=== PATIENT | male | born 1990 | race Caucasian/White ===

== ENCOUNTER 2016-12-18 15:21 | Inpatient (IN) | payer BC, OTHER ==
[~2016-12-18] VITALS: Ht 180.3 cm; Wt 83.9 kg
[2016-12-18 21:27] LABS: *AMPHETAMINE, URINE NEGATIVE (NEGATIVE); *BARBITURATE, URINE POSITIVE (NEGATIVE); *CANNABINOID, URINE NEGATIVE (NEGATIVE); *COCCAINE, URINE NEGATIVE (NEGATIVE); *OPIATE, URINE NEGATIVE (NEGATIVE); *PHENCYCLIDINE SCREEN,URINE NEGATIVE (NEGATIVE)
--- NOTE | 2016-12-18 21:30 | NUR ---
Pre admission note Pt assessed in intake office. Pt appears mildly intoxicated but stable at this time. Pt is suitable for admission. V/S WNL. No s/s of distress noted. Respirations even and unlabored. Policies on medication disposal explained and understood by patient. Pt will be be admitted to unit.
[2016-12-18 21:45] VITALS: BP 110/66
[2016-12-18] MEDS ORDERED: ACETAMINOPHEN 325 MG TABLET PO PRN (21:45)
[2016-12-18] MEDS ORDERED: MAGNESIUM HYDROXIDE 30 ML LIQUID UDC PO PRN (21:45)
[2016-12-18] MEDS ORDERED: MAG HYDROX/AL HYDROX/SIMETH 30 ML LIQUID UDC PO PRN (21:45)
[2016-12-18] MEDS ORDERED: HYDROXYZINE PAMOATE 25 MG CAPSULE PO PRN (21:45)
[2016-12-18] MEDS ORDERED: LORAZEPAM 1 MG TABLET PO PRN ×2 (21:45)
[2016-12-18] MEDS ORDERED: diphenhydrAMINE 50 MG CAPSULE PO PRN (21:45)
[2016-12-18] MEDS ORDERED: DICYCLOMINE HCL 20 MG TABLET PO PRN (21:45)
[2016-12-18] MEDS ORDERED: CLONIDINE HCL 0.1 MG TABLET PO PRN (21:45)
[2016-12-18] MEDS ORDERED: LOPERAMIDE HCL 2 MG CAPSULE PO PRN ×2 (21:45)
[2016-12-18] MEDS ORDERED: MIRALAX 17 GM POWD.PACK PO PRN (21:45)
[2016-12-18] MEDS ORDERED: THIAMINE HCL 200 MG/2 ML VIAL IM ONE (21:45)
[2016-12-18] MEDS ORDERED: LORAZEPAM 2 MG/1 ML VIAL IM PRN (21:45)
[2016-12-18] MEDS ORDERED: ONDANSETRON 4 MG/2 ML VIAL IM PRN (21:45)
[2016-12-18] MEDS ORDERED: IBUPROFEN 400 MG TABLET PO PRN (21:45)
--- NOTE | 2016-12-18 21:45 | NUR ---
Admission note Pt is a 26 yo male, A+Ox4, presenting to [facility] for ETOH/Benzo/Barbiturate/Cocaine/Marijuana dependence. Pt has Allergies to bees and Acetaminophen, is on Full code, and on regular diet. Pt is 5'11" in height and 185 LBS in weight. Pt has medical HX of Pseudo Seizures (8 days ago), Asthma, Vertigo, Herniated discs (c6 and c7), bipolar, depression, anxiety, and panic disorder. Pt has no primary care provider. Pt has no family HX to report. Pt has been drinking alcohol for 4 years (6 months currently), has reached a level of 750ml-1500ml/daily, and last drink was 375ml on 12-18-16 @1999. Pt has been taking Xanax PO for 7 years (6 months currently), has reached a level of 5mg-10mg/daily, and last dose was 8mg on 12-15-16. Pt has been taking Pentobarbital PO for 2 years (6 months currently), pt is unsure how much he has been taking daily, and last dose was on 12-18-16 @1999 in an unknown amount. Pt has been using Cocaine IV/intranasally for 2 years (6 months currently), has reached a level of 3.5gm-7gm/daily, and last dose was 3.5gm on 12-11-16. Pt has been smoking Marijuana for 2 years, has reached a level of 4gm-5gm/daily, and last dose was 4gm-5gm on 12-15-16. Pt has been taking home medications as follows: Gabapentin 1200mg QID-Last dose on 12/13/16, Albuterol inhaler PRN, and Seroquel 100mg QHS-Last dose unknown. Pt has HX of previous detox/rehab @ [facility] in [place] in February 2016. Pt continued sobriety for a total of 121 days. This was the Pt's last time sober. Pt has been a cigarette smoker for 9 years and has reached a level of 20/daily. Pt appears mildly intoxicated upon admission but in stable condition. V/S WNL. No s/s of distress noted at this time. Respirations even and unlabored. Will continue to monitor.
[2016-12-18] MEDS ORDERED: LORAZEPAM 1 MG TABLET PO ONE (23:00)
[2016-12-18] MEDS ORDERED: LORAZEPAM 1 MG TABLET ONE (23:06)
[2016-12-18] MEDS ORDERED: THIAMINE HCL 200 MG/2 ML VIAL ONE (23:06)
[2016-12-18 23:26] LABS: BASOPHILS # (AUTO) 0.1 K/uL (0.0-8.0); EOSINOPHILS # (AUTO) 0.3 K/uL (0.0-0.7); EOSINOPHILS % (AUTO) 2.2 % (0.0-7.0); HEMATOCRIT 43.3 % (40-50); HEMOGLOBIN 15.2 G/DL (14.0-18.0); LYMPHOCYTES # (AUTO) 2.9 K/UL (0.8-4.8); LYMPHOCYTES % (AUTO) 23.5 % (20.5-51.5); MEAN CORPUSCULAR HEMOGLOBIN 29.4 UUG (27.0-31.0); MEAN CORPUSCULAR HGB CONC 35 g/dL (32.0-37.0); MEAN CORPUSCULAR VOLUME 83.9 FL (82.0-92.0); MONOCYTES # (AUTO) 0.8 K/UL (0.1-1.30); MONOCYTES % (AUTO) 6.6 % (0.0-11.0); NEUTROPHILS # (AUTO) 8.4 K/UL (1.8-8.9); NEUTROPHILS % (AUTO) 66.7 % (38.5-71.5); PLATELET COUNT (AUTO) 290 K/UL (150-450); RED BLOOD CELL COUNT(AUTO) 5.17 MIL/UL (4.7-6.1); WHITE BLOOD COUNT (AUTO) 12.5 K/UL (4.0-11.2)
[2016-12-18 23:57] LABS: THYROID STIMULATING HORMONE 4.915 mIU/mL (0.358-3.740)
[2016-12-19] LABS: BILIRUBIN,TOTAL 0.3 mg/dL (0.2-1.0); CREATININE 1.2 mg/dL (0.6-1.3); MAGNESIUM 1.9 mg/dL (1.8-2.4); POTASSIUM 4.3 mmol/L (3.5-5.1)
[2016-12-19 00:14] VITALS: BP 119/50
[2016-12-19] MEDS ORDERED: ALBU18HF2 INH (02:05)
[2016-12-19] MEDS ORDERED: QUET100T PO (02:05)
[2016-12-19] MEDS ORDERED: GABA800T PO (02:05)
[2016-12-19 04:46] VITALS: BP 107/60
--- NOTE | 2016-12-19 07:00 | NUR ---
End of shift note Pt is a 26 yo male, A+Ox4, presenting to [facility] for ETOH/Benzo/Barbiturate/Cocaine/Marijuana dependence. Pt has Allergies to Bees and Acetaminophen, is on Full code status, and on regular diet. Pt has medical HX of Pseudo Seizures (8 days ago), Asthma, Vertigo, Herniated discs (c6 and c7), bipolar, depression, anxiety, and panic disorder. Pt is on Fall and Seizure precautions. Pt is on 5 day Ativan taper to start today. Pt slept for a total of 6 HRS. Last CIWA: 1 @0400. No s/s of distress noted at this time. Respirations even and unlabored. Will continue to monitor.
--- NOTE | 2016-12-19 07:48 | NUR ---
START OF SHIFT Pt 26 y/o male admitted for etoh/ benzo/ barbituate/ cocaine/ marijuana dependence. Pt received in room sitting on bed awake. Pt alert and oriented to name, place, and time. Perrla. Skin warm and slightly moist to touch. Respirations even and unlabored. It was reported that pt slept for 6 hours last night. Bed on lowest position with side rails x2 up for safety. Call light within reach. No distress noted at this time.
[2016-12-19 08:00] VITALS: BP 117/77
[2016-12-19] MEDS: GABAPENTIN 300 MG CAPSULE PO SCH ×3 (08:23→20:58)
[2016-12-19] MEDS: THIAMINE HCL 100 MG TABLET PO SCH (08:23)
[2016-12-19] MEDS: MULTIVITAMINS,THERAPEUTIC TABLET PO SCH (08:23)
[2016-12-19] MEDS: FOLIC ACID 1 MG TABLET PO SCH (08:23)
[2016-12-19] MEDS: LORAZEPAM 1 MG TABLET PO SCH ×4 (08:24→20:57)
--- NOTE | 2016-12-19 08:30 | NUR ---
PRN Pt with c/o back pain 04/20. Motrin po prn per MD order given and tolerated well.
[2016-12-19] MEDS ORDERED: TUBERCULIN,PURIF.PROT.DERIV. 5 TU/0.1 ML TEST ID ONE (09:00)
--- NOTE | 2016-12-19 09:30 | NUR ---
PRN BRIGITTE Pt observed on bed in room with eyes closed resting, but easily arousable to name.
[2016-12-19 12:00] VITALS: BP 102/67
[2016-12-19] MEDS: KETOROLAC TROMETHAMINE 30 MG INJ IM PRN ×2 (12:44→18:57)
--- NOTE | 2016-12-19 12:44 | NUR ---
PRN Pt states lower back pain 04/20. Toradol IM prn per MD order given and tolerated well.
[2016-12-19] MEDS ORDERED: PATIENT MAY USE OWN MED- MD OK INH PRN (13:00)
--- NOTE | 2016-12-19 13:44 | NUR ---
PRN EVAL Pt states pain level is 4/10. Pt observed ambulating well.
[2016-12-19] MEDS ORDERED: QUETIAPINE FUMARATE 25 MG TABLET PO PRN (14:00)
--- NOTE | 2016-12-19 14:54 | NUR ---
Client was encouraged to attend group, and was informed that groups are daily at 11am and 3:30pm.
[2016-12-19] MEDS ORDERED: ALBUTEROL SULFATE 1.25 MG/3 ML NEBU NEB PRN (15:30)
[2016-12-19 16:00] VITALS: BP 120/73
--- NOTE | 2016-12-19 18:21 | NUR ---
END OF SHIFT Pt 26 y/o male admitted for etoh/ benzo/ barbiturate/ cocaine/ marijuana dependence. Pt alert and oriented to name, place, and time. Perrla. Skin warm and slightly moist to touch. Respirations even and unlabored. Bilateral hand tremors noted. Pt observed mostly isolative to room throughout the day. Pt did not attend group activity today. Pt was seen by Dr. Tran today. Pt medication compliant and tolerated well. No ASE noted. Bed on lowest position with side rails x2 up for safety. Call light within reach. No distress noted at this time.
--- NOTE | 2016-12-19 19:00 | NUR ---
PRN Pt states pain level 7/10 of lower back , aggravated by movement. Toradol IM prn per MD order given and tolerated well.
--- NOTE | 2016-12-19 19:15 | NUR ---
START OF SHIFT Received 26 year old male patient admitted on 12/18/16 for ETOH, Xanax, Phenobarbital, Cocaine and Marijuana dependency. Pt is full code with allergy to acetaminophen and bees. Pt reports a PMHx of pseudo seizures (8 days ago) asthma, vertigo, herniated discs C6&C7, bipolar, depression, anxiety and panic disorder. He reports drinking ETOH 750 mL-1500 mL vodka daily for 4 years. Last dose was 375 mL on 12/18/16. Xanax 5-10 mg daily for 7 years. Last dose was 8 mg on 12/15/16. Phenobarbital daily for 2 years. Last dose was on 12/18/16. Cocaine 3.5 -7 gram daily for 2 years. Last dose was 3.5 gram on 12/11/16. And Marijuana 4-5 gram daily or 2 years. Last dose was 4 -5 gram on 12/15/16. Per endorsement, pt received PRN Toradol. Will reassess effectiveness. Pt is alert and oriented x4, breathing is even and unlabored. Safety measures in place. Will continue to monitor.
[2016-12-19 20:00] VITALS: BP 118/81
--- NOTE | 2016-12-19 20:00 | NUR ---
PRN REASSESSMENT PRN Toradol effective. Pt reports decrease in lower back pain 09/18. Breathing even and unlabored, safety measures in place. Will monitor.
[2016-12-19] MEDS: QUETIAPINE FUMARATE 100 MG TABLET PO PRN (23:02)
--- NOTE | 2016-12-19 23:02 | NUR ---
PRN SEROQUEL Pt complains of inability to sleep. PRN Seroquel administered as ordered. Breathing is even and unlabored. Respirations 16. Safety measures in place. Will monitor effectiveness.
[2016-12-20] VITALS: BP 112/85
--- NOTE | 2016-12-20 00:02 | NUR ---
PRN SEROQUEL REASSESSMENT PRN medication effective. Pt lying in bed with eyes closed noted to be asleep. Respirations 16, breathing is even and unlabored, safety measures in place. Will continue to monitor.
[2016-12-20 04:00] VITALS: BP 110/82
--- NOTE | 2016-12-20 07:07 | NUR ---
END OF SHIFT Pt is a 26 year old male patient admitted on 12/18/16 for ETOH, Xanax, Phenobarbital, Cocaine and Marijuana dependency. Pt is full code with allergy to acetaminophen and bees. Pt reports a PMHx of pseudo seizures (8 days ago) asthma, vertigo, herniated discs C6&C7, bipolar, depression, anxiety and panic disorder. Pt continues on 5 day Ativan taper. He is currently on day 2/5 and tolerating well. He received PRN Seroquel at 2302 d/t inability to sleep. He slept a total of 6 hrs, Intake: 1200mL, Void: x3, BM:0, CIWA:4. Pt remains alert and oriented x4, breathing is even and unlabored. Safety measures in place. Will endorse to oncoming shift.
[2016-12-20 08:00] VITALS: BP 117/69
--- NOTE | 2016-12-20 08:02 | NUR ---
START OF SHIFT Pt 26 y/o male admitted for etoh/ benzo/ barbituate/ cocaine/ marijuana dependence. Pt received in room on bed with eyes closed resting, but easily arousable to name. Pt alert and oriented to name, place, and time. Perrla. Skin warm and slightly moist to touch. Respirations even and unlabored. It was reported that pt slept for 6 hours last night. Bed on lowest position with side rails x2 up for safety. Call light within reach. No distress noted at this time.
[2016-12-20] MEDS: GABAPENTIN 300 MG CAPSULE PO SCH ×3 (08:44→21:02)
[2016-12-20] MEDS: LIDOCAINE 5% PATCH TD SCH (08:44)
[2016-12-20] MEDS: LORAZEPAM 1 MG TABLET PO SCH ×3 (08:44→21:01)
[2016-12-20] MEDS: MULTIVITAMINS,THERAPEUTIC TABLET PO SCH (08:45)
[2016-12-20] MEDS: FOLIC ACID 1 MG TABLET PO SCH (08:45)
[2016-12-20] MEDS: THIAMINE HCL 100 MG TABLET PO SCH (08:45)
[2016-12-20] MEDS: KETOROLAC TROMETHAMINE 30 MG INJ IM PRN ×2 (08:46→14:56)
--- NOTE | 2016-12-20 08:56 | NUR ---
PRN Pt with c/o back pain 12/19. Toradol IM prn per MD order given and tolerated well.
--- NOTE | 2016-12-20 09:56 | NUR ---
PRN EVAL Pt states pain level 2/10.
[2016-12-20 12:00] VITALS: BP 115/77
[2016-12-20] MEDS ORDERED: LORAZEPAM 1 MG TABLET PO ONE ×2 (12:00→19:00)
[2016-12-20] MEDS: BACLOFEN 10 MG TABLET PO SCH ×2 (14:12→21:01)
[2016-12-20] MEDS: DICYCLOMINE HCL 20 MG TABLET PO SCH ×2 (14:12→21:01)
--- NOTE | 2016-12-20 15:02 | NUR ---
PRN Pt with c/o lower back pain 02/18. toradol IM per MD order given and tolerated well.
[2016-12-20 16:00] VITALS: BP_SYST 118; BP_SYST 96; BP_DIAS 57; BP_DIAS 79
--- NOTE | 2016-12-20 16:02 | NUR ---
PRN BRIGITTE Pt states pain 10/19.
--- NOTE | 2016-12-20 18:05 | NUR ---
END OF SHIFT Pt 26 y/o male admitted for etoh/ benzo/ barbiturate/ cocaine/ marijuana dependence. Pt alert and oriented to name, place, and time. Perrla. Skin warm and slightly moist to touch. Respirations even and unlabored. Bilateral hand tremors noted. Pt observed mostly on wheelchair in dining room throughout the day. Pt atetnded group activity. Pt did not attend group activity today. Pt was seen by Dr. Tran today. Pt medication compliant and tolerated well. No ASE noted. Bed on lowest position with side rails x2 up for safety. Call light within reach. No distress noted at this time.
--- NOTE | 2016-12-20 19:03 | NUR ---
PRN Pt with c/o vomiting episode x1. Bilateral hand tremors noticeable. Pt anxious and not able to sit still. MD aware with new order for ativan 2mg x1 po noted and carried out.
--- NOTE | 2016-12-20 19:15 | NUR ---
START OF SHIFT Received 26 year old male patient admitted on 12/18/16 for ETOH, Xanax, Phenobarbital, Cocaine and Marijuana dependency. Pt is full code with allergy to acetaminophen and bees. Pt reports a PMHx of pseudo seizures (8 days ago) asthma, vertigo, herniated discs C6&C7, bipolar, depression, anxiety and panic disorder. He reports drinking ETOH 750 mL-1500 mL vodka daily for 4 years. Last dose was 375 mL on 12/18/16. Xanax 5-10 mg daily for 7 years. Last dose was 8 mg on 12/15/16. Phenobarbital daily for 2 years. Last dose was on 12/18/16. Cocaine 3.5 -7 gram daily for 2 years. Last dose was 3.5 gram on 12/11/16. And Marijuana 4-5 gram daily or 2 years. Last dose was 4 -5 gram on 12/15/16. Per endorsement, pt received PRN Toradol. He also received Ativan 2mg x1. Will reassess effectiveness. Pt with wheelchair for unsteady gait/vertigo. Pt is alert and oriented x4, breathing is even and unlabored. Safety measures in place. Will continue to monitor.
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
[2016-12-20 20:00] VITALS: BP 125/86
--- NOTE | 2016-12-20 20:03 | NUR ---
PRN REASSESSMENT Pt reports Ativan 2 mg x1 somewhat effective. Pt still complains of withdrawal symptoms such as anxiety and agitation. Will continue to monitor.
[2016-12-20] MEDS: CLONIDINE HCL 0.1 MG TABLET PO SCH (21:02)
[2016-12-21] VITALS: BP 115/75
--- NOTE | 2016-12-21 | NUR ---
CIWA DEFERRED 0000 CIWA deferred d/t order is Q4H while awake. Pt is lying in bed with eyes closed noted to be asleep. Respirations 16, breathing even and unlabored. Safety measures in place. Will monitor.
[2016-12-21 04:00] VITALS: BP 111/70
--- NOTE | 2016-12-21 04:00 | NUR ---
CIWA DEFERRED 0400 CIWA deferred d/t order is Q4H while awake. Pt is lying in bed with eyes closed noted to be asleep. Respirations 16, breathing even and unlabored. Safety measures in place. Will monitor.
--- NOTE | 2016-12-21 07:04 | NUR ---
END OF SHIFT Pt is a 26 year old male patient admitted on 12/18/16 for ETOH, Xanax, Phenobarbital, Cocaine and Marijuana dependency. Pt is full code with allergy to acetaminophen and bees. Pt reports a PMHx of pseudo seizures (8 days ago) asthma, vertigo, herniated discs C6&C7, bipolar, depression, anxiety and panic disorder. Pt did not receive or request PRN medications. He slept a total of 7 hrs, Intake:1500mL Void:x2 BM:0 CIWA:5. Pt remains alert and oriented x4, breathing is even and unlabored. Safety measures in place. Will endorse to oncoming shift.
--- NOTE | 2016-12-21 07:46 | NUR ---
START OF SHIFT Received report from night warehouse manager nurse. 26 year old male admitted on 12/18/16 for ETOH, Xanax, Phenobarbital, Cocaine and Marijuana dependence. Allergic to acetaminophen and bee venom. No PRN medications needed or administered at night. Most recent CIWA is 5. Pt has been started on a 5 day Ativan taper and is currently on day 3. Pt is tolerating taper well and s/s of withdrawal are being well managed with ordered medications. Pt has hx of pseudo seizures, asthma, vertigo. bipolar, depression, anxiety, panic disorders and herniated disc. Pt ambulates via wheelchair because of imbalance from vertigo. PT has evaluated client and per report has requested for a cane instead. Pt did not need or receive any PRN medications and slept for 7 hours. All needs met, pt is stable. Safety precautions are in place, will continue to monitor.
[2016-12-21 08:00] VITALS: BP 127/83
[2016-12-21] MEDS: DICYCLOMINE HCL 20 MG TABLET PO SCH ×3 (08:57→20:27)
[2016-12-21] MEDS: GABAPENTIN 300 MG CAPSULE PO SCH ×3 (08:57→20:28)
[2016-12-21] MEDS: LIDOCAINE 5% PATCH TD SCH (08:57)
[2016-12-21] MEDS: THIAMINE HCL 100 MG TABLET PO SCH (08:57)
[2016-12-21] MEDS: MULTIVITAMINS,THERAPEUTIC TABLET PO SCH (08:57)
[2016-12-21] MEDS: LORAZEPAM 1 MG TABLET PO SCH ×4 (08:57→20:28)
[2016-12-21] MEDS: BACLOFEN 10 MG TABLET PO SCH (08:57)
[2016-12-21] MEDS: FOLIC ACID 1 MG TABLET PO SCH (08:57)
[2016-12-21] MEDS: CLONIDINE HCL 0.1 MG TABLET PO SCH ×3 (08:57→20:29)
[2016-12-21] MEDS: KETOROLAC TROMETHAMINE 30 MG INJ IM PRN ×2 (08:58→20:39)
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
--- NOTE | 2016-12-21 10:28 | NUR ---
REASSESSMENT Pt reports pain decreased to 6/10 but does not want any pain medication at this time. Pt encouraged to use nonpharmacological methods. Pt remains stable at this time.
--- NOTE | 2016-12-21 10:29 | NUR ---
PT EVALUATION Pt was seen by physical therapy, pt now has cane for assistance ambulating and no longer in need of the wheelchair. Gait remains steady.
[2016-12-21 12:50] VITALS: BP 126/80
[2016-12-21] MEDS ORDERED: BACLOFEN 10 MG TABLET PO SCH (15:00)
[2016-12-21] MEDS: BACLOFEN 20 MG TABLET PO SCH ×2 (15:24→20:28)
[2016-12-21 17:42] VITALS: BP 115/77
--- NOTE | 2016-12-21 18:40 | NUR ---
END OF SHIFT Pt continues on 5 day Ativan taper and is tolerating well. S/S of withdrawal are being well managed with ordered medications. Pt evaluated by physical therapist, ambulates with cane, gait is steady. Pt encouraged to verbalize feeling, mood and affect are congruent. PPD was read and negative. PRN Toradol was administered at 0900 due to chronic back pain. Pt attends group activities and meetings and socialized with peers. Pt remains safe, safety precautions are in place, shift superintendent nurse to continue monitoring.
--- NOTE | 2016-12-21 19:15 | NUR ---
START OF SHIFT Received 26 year old male patient admitted on 12/18/16 for ETOH, Xanax, Phenobarbital, Cocaine and Marijuana dependency. Pt is full code with allergy to acetaminophen and bees. Pt reports a PMHx of pseudo seizures (8 days ago) asthma, vertigo, herniated discs C6&C7, bipolar, depression, anxiety and panic disorder. He reports drinking ETOH 750 mL-1500 mL vodka daily for 4 years. Last dose was 375 mL on 12/18/16. Xanax 5-10 mg daily for 7 years. Last dose was 8 mg on 12/15/16. Phenobarbital daily for 2 years. Last dose was on 12/18/16. Cocaine 3.5 -7 gram daily for 2 years. Last dose was 3.5 gram on 12/11/16. And Marijuana 4-5 gram daily or 2 years. Last dose was 4 -5 gram on 12/15/16. Per endorsement, pt received PRN Toradol. He also has a cane for unsteady gait. Pt is alert and oriented x4, breathing is even and unlabored. Safety measures in place. Will continue to monitor.
[2016-12-21 20:00] VITALS: BP 107/72
[2016-12-21] MEDS: ONDANSETRON ODT 4 MG TAB.RAPDIS SL PRN ×2 (20:28→21:44)
--- NOTE | 2016-12-21 20:28 | NUR ---
PRN ZOFRAN Pt complains of nausea with no episode of vomiting. PRN Zofran administered as ordered. Breathing even and unlabored, safety measures in place. Will continue to monitor effectiveness.
--- NOTE | 2016-12-21 20:39 | NUR ---
PRN TORADOL Pt complains of generalized pain 02/18. PRN Toradol IM administered as ordered. Breathing is even and unlabored, safety measures in place. Will monitor effectiveness.
--- NOTE | 2016-12-21 21:28 | NUR ---
PRN ZOFRAN REASSESSMENT Pt reports that PRN Zofran 4 mg SL is ineffective. Pt still complains of nausea and dry heaving. Will continue to monitor.
--- NOTE | 2016-12-21 21:39 | NUR ---
PRN TORADOL REASSESSMENT PRN Toradol somewhat effective. Pt reports decrease in pain to 6/10. Breathing even and unlabored, safety measures in place. Will monitor.
--- NOTE | 2016-12-21 21:50 | NUR ---
PRN ZOFRAN IM Pt reports that PRN Zofran PO ineffective. Pt still complains of nausea/ dry heaving. PRN Zofran IM administered as ordered. Breathing even and unlabored, safety measures in place. Will monitor effectiveness of medication.
--- NOTE | 2016-12-21 22:50 | NUR ---
PRN ZOFRAN IM REASSESSMENT PRN medication ineffective. Pt still reports feeling nauseous. Breathing even and unlabored, safety measures in place. Will continue to monitor.
[2016-12-22] VITALS: BP 110/70
--- NOTE | 2016-12-22 00:59 | NUR ---
MD communication Pt c/o nausea, no vomiting. Zofran SL and IV were administered and ineffective. Contacted Dr. Turner and he ordered IV one bag D5 1/2 NS@125 ml/hr. To carry out.
[2016-12-22] MEDS ORDERED: IV D5W-0.45% NS 1000 ML BAG IV ONE (01:00)
--- NOTE | 2016-12-22 01:20 | NUR ---
IV INSERTION IV inserted on Right hand gauge 22. Patent and flushing well.
--- NOTE | 2016-12-22 04:00 | NUR ---
VITALS/CIWA 0400 vitals refused. CIWA deferred d/t pt lying in bed with eyes closed noted to be asleep. Respirations 16, breathing is even and unlabored, safety measures in place. IV continues to run @125 mL/hr. Will continue to monitor.
[2016-12-22 04:07] LABS: HEPATITIS B SURFACE AG Negative (Negative)
--- NOTE | 2016-12-22 07:11 | NUR ---
END OF SHIFT Pt is a 26 year old male patient admitted on 12/18/16 for ETOH, Xanax, Phenobarbital, Cocaine and Marijuana dependency. Pt is full code with allergy to acetaminophen and bees. Pt reports a PMHx of pseudo seizures (8 days ago) asthma, vertigo, herniated discs C6&C7, bipolar, depression, anxiety and panic disorder. At 2027 pt received PRN Zofran, At 2038 pt received PRN Toradol, at 2149 pt received PRN Zofran IM. At 119 pt received new order for IV D51/2 NS to run @125 mL. IV is patent and running. He slept a total of 5 hrs, Intake: 1550mL, Void: x1, BM:0, CIWA:7. Pt remains alert and oriented x4, breathing is even and unlabored. Safety measures in place. Endorsed to oncoming shift.
--- NOTE | 2016-12-22 07:45 | NUR ---
START OF SHIFT NOTE Patient is alert X4 and orientated to unit. Patient slept 5 hours last night according to night nurse. Vital signs are stable this morning. Last CIWA was 6. Patient is on a 5 day Ativan taper and tolerating well. Patient states,"finally slept well last night". Patient has an IV to right hand with D51/2NS @ 125 running. IV is patent. All safety measures in place. Call light within reach, bed locked and in lowest position. will continue to monitor
[2016-12-22 08:00] VITALS: BP 106/58
[2016-12-22] MEDS: GABAPENTIN 300 MG CAPSULE PO SCH ×3 (09:05→21:32)
[2016-12-22] MEDS: LORAZEPAM 1 MG TABLET PO SCH ×4 (09:06→21:33)
[2016-12-22] MEDS: CLONIDINE HCL 0.1 MG TABLET PO SCH ×3 (09:06→21:33)
[2016-12-22] MEDS: MULTIVITAMINS,THERAPEUTIC TABLET PO SCH (09:06)
[2016-12-22] MEDS: FOLIC ACID 1 MG TABLET PO SCH (09:06)
[2016-12-22] MEDS: DICYCLOMINE HCL 20 MG TABLET PO SCH ×3 (09:06→21:33)
[2016-12-22] MEDS: BACLOFEN 20 MG TABLET PO SCH ×3 (09:07→21:32)
[2016-12-22] MEDS: LIDOCAINE 5% PATCH TD SCH (09:07)
[2016-12-22] MEDS: THIAMINE HCL 100 MG TABLET PO SCH (09:07)
[2016-12-22 12:00] VITALS: BP 126/75
[2016-12-22] MEDS: ONDANSETRON ODT 4 MG TAB.RAPDIS SL PRN (12:42)
--- NOTE | 2016-12-22 12:42 | NUR ---
PRN Pt states had 1 vomit episode. Wing shen prn per MD order given and tolerated well. Addendum: 12/22/16 at 1328 by YARELY RENDON RN Also notified MD per pt request for IFV, with new order for IVF D5 1/2 NS @ 120ml/hr x24 hours, noted and carried out.
[2016-12-22] MEDS ORDERED: IV D5W-0.45% NS 1000 ML BAG IV SCH (13:00)
[2016-12-22] MEDS: IV D5 1/2 NS 1000 ML 1,000 ML IV PRN (13:13)
[2016-12-22] MEDS: KETOROLAC TROMETHAMINE 30 MG INJ IM PRN ×2 (15:13→21:33)
--- NOTE | 2016-12-22 15:18 | NUR ---
PRN Pt with c/o pain lower back 8/10 aching and sharp. Toradol IM per MD order given and tolerated well.
[2016-12-22 16:55] VITALS: BP 104/71
--- NOTE | 2016-12-22 18:54 | NUR ---
Patient is a 26 year old male admitted on 12/18/16. Full code. He is alert and orientated X4. Vital signs have been stable throughout the day. Last CIWA 6. Patient given Zofran for nausea and Toradol for pain PRN with effectiveness. Patient has an IV to the right hand with D51/2NS running @120, order is for 24 hour fluids. IV is patent with no signs of infiltration. Patient is not tolerating food well. Patient is on a 5 day Ativan Taper. Patient has participated in group today and socialized around the unit. He has been complaint with medications and MD orders. All safety measures have been met, call light within reach, bed locked and in lowest position. All needs have been met. Will endorse to oncoming nurse.
[2016-12-22 20:00] VITALS: BP 113/65
--- NOTE | 2016-12-22 20:00 | NUR ---
Start of Shift Patient is a 26-year old, male, admitted for Alcohol, Benzo, Phenobarbital and Cocaine Dependence. With PMHx of Pseudo Seizures, Asthma, Vertigo, Herniated Discs from C6-C7, Bipolar Depression, Anxiety and Panic Disorder. On 5-Day Ativan taper, started 12/19/2016. Patient with IV to the right hand #22, patent and intact, with IVF D5 1/2NS at 120 ml/hr, order is for 24 hour fluids. Pt with c/o intermittent nausea and only able to finish about 25-40% of meals. Pt is AAOx4, no SOB nor anxiety noted at this time. Pt is ambulatory with use of cane. No skin issues. Fall, universal and safety prec in place. Call light within reach. No facial grimacing noted. Latest CIWA=5. Will continue to monitor.
--- NOTE | 2016-12-22 21:34 | NUR ---
RN note PRN Toradol Pt c/o lower back pain=02/18. Administered Toradol 30 mg IM. No bleeding noted. Will reassess.
--- NOTE | 2016-12-22 22:30 | NUR ---
RN note reassess Pt verbalized pain level=3/10. Toradol is effective.
[2016-12-23] VITALS: BP 110/66
[2016-12-23] MEDS: IV D5 1/2 NS 1000 ML 1,000 ML IV PRN ×2 (01:03→09:42)
[2016-12-23] MEDS: QUETIAPINE FUMARATE 100 MG TABLET PO PRN (03:14)
--- NOTE | 2016-12-23 03:15 | NUR ---
RN note PRN Seroquel Pt c/o sleeplessness and increasing agitation and "depressed feeling". Administered Seroquel 100 mg PO as ordered. Will reassess.
[2016-12-23 04:00] VITALS: BP 115/74
--- NOTE | 2016-12-23 04:15 | NUR ---
RN note reassess Pt asleep on bed, no SOB nor facial grimacing noted. Seroquel effective.
--- NOTE | 2016-12-23 07:13 | NUR ---
End of Shift Patient is a 26-year old, male, admitted for Alcohol, Benzo, Phenobarbital and Cocaine Dependence. With PMHx of Pseudo Seizures, Asthma, Vertigo, Herniated Discs from C6-C7, Bipolar Depression, Anxiety and Panic Disorder. On 5-Day Ativan taper, started 12/19/2016. Patient with IV to the right hand #22, patent and intact, with IVF D5 1/2NS at 120 ml/hr, order is for 24 hour fluids. Pt with c/o intermittent nausea and only able to finish about 25-40% of meals. Pt is AAOx4, no SOB nor anxiety noted at this time. Pt is ambulatory with use of cane. No skin issues. Fall, universal and safety prec in place. Call light within reach. No facial grimacing noted. Latest CIWA=4, slept for 3 hours. Endorsed to AM shift nurse for continuity of care.
--- NOTE | 2016-12-23 07:54 | NUR ---
Start of Shift Patient is a 26-year old, male, admitted on 12/18/16 for Alcohol, Benzo, Phenobarbital and Cocaine dependence with a history of marijuana use. With PMHx of Pseudo Seizures, Asthma, Vertigo, Herniated Discs from C6-C7, Bipolar Depression, Anxiety and Panic Disorder. On 5-Day Ativan taper, started 12/19/2016 and tolerating well. Patient with IV to the right hand 22 gauge, patent and intact, with IV fluids of D5 1/2NS at 120 ml/hr running, order is for 24 hour fluids. Pt is currently resting in bed with eyes closed and even respirations and is in no distress. Pt is ambulatory with use of cane. No skin issues. Fall, universal and safety precautions in place. Call light within reach. No facial grimacing noted. Latest CIWA 4, recorded at 0400. PRN Toradol administered for pain on NOC shift and was reported as effective by night nurse. All safety precautions in place and maintained. Will continue to monitor, support and encourage according to plan of care.
[2016-12-23] MEDS: LORAZEPAM 1 MG TABLET PO SCH ×2 (08:08→20:03)
[2016-12-23] MEDS: DICYCLOMINE HCL 20 MG TABLET PO SCH ×3 (08:09→20:03)
[2016-12-23] MEDS: CLONIDINE HCL 0.1 MG TABLET PO SCH ×2 (08:11→20:03)
[2016-12-23] MEDS: FOLIC ACID 1 MG TABLET PO SCH (08:11)
[2016-12-23] MEDS: BACLOFEN 20 MG TABLET PO SCH ×3 (08:11→20:03)
[2016-12-23] MEDS: LIDOCAINE 5% PATCH TD SCH (08:12)
[2016-12-23] MEDS: MULTIVITAMINS,THERAPEUTIC TABLET PO SCH (08:12)
[2016-12-23] MEDS: THIAMINE HCL 100 MG TABLET PO SCH (08:12)
[2016-12-23] MEDS: GABAPENTIN 300 MG CAPSULE PO SCH ×3 (08:12→20:03)
[2016-12-23 08:19] VITALS: BP 108/66
[2016-12-23 12:39] VITALS: BP 101/60
--- NOTE | 2016-12-23 14:00 | NUR ---
IV IV dc'd and pt tolerated well.
[2016-12-23 17:29] VITALS: BP 117/79
--- NOTE | 2016-12-23 18:35 | NUR ---
END OF SHIFT Pt 26 y/o male admitted for etoh/ benzo/ barbiturate/ cocaine/ marijuana dependence. Pt alert and oriented to name, place, and time. Perrla. Skin warm and slightly moist to touch. Respirations even and unlabored. Bilateral hand tremors noted slightly. Pt observed mostly in dining room throughtout the day. Pt atetnded group activity. Pt was seen by Dr. Tran today. Pt medication compliant and tolerated well. No ASE noted. Bed on lowest position with side rails x2 up for safety. Call light within reach. No distress noted at this time.
[2016-12-23 20:00] VITALS: BP 128/82
--- NOTE | 2016-12-23 20:00 | NUR ---
Start of Shift Patient is a 26-year old, male, admitted for Alcohol, Benzo, Phenobarbital and Cocaine Dependence. With PMHx of Pseudo Seizures, Asthma, Vertigo, Herniated Discs from C6-C7, Bipolar Depression, Anxiety and Panic Disorder. On 5-Day Ativan taper, started 12/19/2016. With no c/o nausea at this time and patient has verbalized having "improved appetite". Pt is AAOx4, no SOB nor anxiety noted at this time. Pt is ambulatory with use of cane. No skin issues. Fall, universal and safety prec in place. Call light within reach. No facial grimacing noted. Latest CIWA=4. Will continue to monitor.
[2016-12-23] MEDS: QUETIAPINE FUMARATE 100 MG TABLET PO SCH (20:04)
[2016-12-24] VITALS: BP 119/78
[2016-12-24 04:00] VITALS: BP 112/74
[2016-12-24] MEDS ORDERED: PANTOPRAZOLE SODIUM 40 MG TABLET.DR PO SCH (07:00)
--- NOTE | 2016-12-24 07:08 | NUR ---
End of Shift Patient is a 26-year old, male, admitted for Alcohol, Benzo, Phenobarbital and Cocaine Dependence. With PMHx of Pseudo Seizures, Asthma, Vertigo, Herniated Discs from C6-C7, Bipolar Depression, Anxiety and Panic Disorder. On 5-Day Ativan taper, started 12/19/2016. With no c/o nausea at this time and patient has verbalized having "improved appetite". Pt is AAOx4, no SOB nor anxiety noted at this time. Pt is ambulatory with use of cane. No skin issues. Fall, universal and safety prec in place. Call light within reach. No facial grimacing noted. Latest CIWA=3, slept for 3 hours. Endorsed to AM shift nurse for continuity of care.
[2016-12-24 08:00] VITALS: BP 119/62
--- NOTE | 2016-12-24 08:12 | NUR ---
START OF SHIFT Pt 26 y/o male admitted for etoh/ benzo/ barbituate/ cocaine/ marijuana dependence. Pt received in room on bed with eyes closed resting, but easily arousable to name. Pt alert and oriented to name, place, and time. Perrla. Skin warm and dry to touch. Respirations even and unlabored. It was reported that pt slept for 3 hours last night. Bed on lowest position with side rails x2 up for safety. Call light within reach. No distress noted at this time.
[2016-12-24] MEDS: LIDOCAINE 5% PATCH TD SCH (09:00)
[2016-12-24] MEDS ORDERED: LORAZEPAM 1 MG TABLET PO SCH (09:00)
[2016-12-24] MEDS: CLONIDINE HCL 0.1 MG TABLET PO SCH ×2 (09:07→21:37)
[2016-12-24] MEDS: GABAPENTIN 300 MG CAPSULE PO SCH ×3 (09:07→21:36)
[2016-12-24] MEDS: ONDANSETRON ODT 4 MG TAB.RAPDIS SL PRN (09:07)
[2016-12-24] MEDS: FOLIC ACID 1 MG TABLET PO SCH (09:08)
[2016-12-24] MEDS: BACLOFEN 20 MG TABLET PO SCH ×3 (09:08→21:58)
[2016-12-24] MEDS: MULTIVITAMINS,THERAPEUTIC TABLET PO SCH (09:08)
[2016-12-24] MEDS: THIAMINE HCL 100 MG TABLET PO SCH (09:08)
[2016-12-24] MEDS: DICYCLOMINE HCL 20 MG TABLET PO SCH ×3 (09:09→21:36)
--- NOTE | 2016-12-24 09:13 | NUR ---
PRN Pt with c/o nausea. Zofran po prn per MD order given and tolerated well.
[2016-12-24] MEDS: KETOROLAC TROMETHAMINE 30 MG INJ IM PRN ×2 (09:26→19:33)
--- NOTE | 2016-12-24 09:34 | NUR ---
PRN Pt with c/o pain 8/10 aching and sharp on lower back. Toradol IM per MD order given and tolerated well.
--- NOTE | 2016-12-24 10:13 | NUR ---
PRN EVAL Pt states does not feel nauseous.
--- NOTE | 2016-12-24 10:34 | NUR ---
PRN BRIGITTE Pt states still has back pain 10/19
[2016-12-24 13:00] VITALS: BP 121/61
--- NOTE | 2016-12-24 14:16 | NUR ---
PRN Pt states feels anxious. Catapres po prn per MD order given and tolerated well.
--- NOTE | 2016-12-24 15:16 | NUR ---
SYED BRIGGS Pt observed in activity room sitting playing games. No distress noted at this time.
[2016-12-24 15:26] LABS: *AMPHETAMINE, URINE NEGATIVE (NEGATIVE); *BARBITURATE, URINE POSITIVE (NEGATIVE); *CANNABINOID, URINE NEGATIVE (NEGATIVE); *COCCAINE, URINE NEGATIVE (NEGATIVE); *OPIATE, URINE NEGATIVE (NEGATIVE); *PHENCYCLIDINE SCREEN,URINE NEGATIVE (NEGATIVE)
[2016-12-24 17:14] VITALS: BP 130/76
--- NOTE | 2016-12-24 18:04 | NUR ---
END OF SHIFT Pt 26 y/o male admitted for etoh/ benzo/ barbiturate/ cocaine/ marijuana dependence. Pt alert and oriented to name, place, and time. Perrla. Skin warm and slightly moist to touch. Respirations even and unlabored. Bilateral hand tremors noted slightly. Pt observed mostly in dining room throughtout the day. Pt attended group activity. Pt was seen by PT today and was fitted for a knee brace for the right knee. Pt was seen by Dr. Turner today. Pt medication compliant and tolerated well. No ASE noted. Bed on lowest position with side rails x2 up for safety. Call light within reach. No distress noted at this time. Pt is scheduled to be discharged tomorrow.
--- NOTE | 2016-12-24 19:30 | NUR ---
START OF SHIFT NOTE PATIENT ALERT AND ORIENTED X 4. RESPIRATION EVEN AND UNLABORED. PATIENT C/O LOWER BACK PAIN 02/18. PATIENT STATES HE'S ANXIOUS BUT HE'S ALRIGHT. "I'M LEAVING TOMORROW". NO N/V. PATIENT HAS BRACE ON RIGHT KNEE AND USES CANE TO AMBULATE. RECEIVED FROM DAY SHIFT NURSE. PATIENT IS A 26 YEAR OLD MALE, ADMITTED FOR ETOH/BENZO/COCAINE/MARIJUANA DEPENDENCE. PATIENT COMPLETED 5 DAY ATIVAN TAPER. PATIENT IS MEDICALLY CLEARED TO BE DISCHARGE TOMORROW. PATIENT IS FULL CODE, REGULAR DIET AND ALLERGIC TO BEE AND ACETAMINOPHEN. UPON ADMISSION, PATIENT IS USING FOR 6 MONTHS .PATIENT'S DRUG OF CHOICE ARE ETOH (VODKA) 750 ML-1500 ML, XANAX 5 MG-10 MG , PHENOBARBITAL "UNSURE AMOUNT", COCAINE 3.5-7 GRAM AND MARIJUANA 4-5 GRAM. PATIENT REPORTED PMH OF CERVICAL DISC DISEASE C6//7 , PSEUDO SEIZURE, BIPOLAR D/O, ANXIETY AND PANIC. SKIN INTACT. LAST COWS 1. PATIENT WAS GIVEN PRN TORADOL, ZOFRAN AND CLONIDINE. ON FALL/SEIZURE PRECAUTION. SAFETY MEASURES IN PLACE. CALL LIGHT IN REACH. WILL CONTINUE TO MONITOR
--- NOTE | 2016-12-24 19:33 | NUR ---
PRN TORADOL IM ADMINISTRATION PATIENT WAS GIVEN PRN TORADOL IM FOR LOWER BACK PAIN 02/18. WILL MONITOR FOR EFFECTIVENESS
[2016-12-24 20:00] VITALS: BP 124/76
--- NOTE | 2016-12-24 20:33 | NUR ---
PRN TORADOL RE-ASSESSMENT PATIENT STATES PAIN LEVEL IS NO W 08/21, TOLERABLE. TORADOL HELPFUL. WILL CONTINUE TO MONITOR
[2016-12-24] MEDS: QUETIAPINE FUMARATE 100 MG TABLET PO SCH (21:36)
--- NOTE | 2016-12-25 | NUR ---
CIWA/VS PATIENT ASLEEP. RESPIRATION EVEN AND UNLABORED. RR 15. REFUSED VS. UNABLE TO COMPLETE CIWA ASSESSMENT. WILL CONTINUE TO MONITOR
[2016-12-25 04:00] VITALS: BP 120/84
[2016-12-25] MEDS ORDERED: LIDO30AD10 TD (05:05)
[2016-12-25] MEDS ORDERED: BACL20TA PO (05:05)
[2016-12-25] MEDS ORDERED: PANT40TA2 PO (05:05)
[2016-12-25] MEDS ORDERED: CLON0.1T14 PO ×2 (05:05)
[2016-12-25] MEDS ORDERED: QUET25TA PO (05:05)
[2016-12-25] MEDS ORDERED: GABA-534 PO (05:05)
[2016-12-25] MEDS ORDERED: DICY20TA28 PO (05:05)
[2016-12-25] MEDS ORDERED: HYDR-3895 PO (05:05)
--- NOTE | 2016-12-25 05:32 | NUR ---
DISCHARGE NOTE PATIENT IN STABLE CONDITION, VS WNL. VS BP- 120/84 .T-98.0 P-94 R-16 PA-0/10. SpO2 98% ON RA . SKIN INTACT. DENIES ANY SUICIDAL OR HOMICIDAL IDEATIONS. ALL DISCHARGE PAPER WORK SIGNED AND DATED. PATIENT WAS DISCHARGED FROM [facility] ON 12/25/16 AT 0532. PATIENT LEFT THE BUILDING WITH ALL BELONGINGS AND PRESCRIPTIONS. NOTIFIED.
== END 2016-12-25 05:32 | disposition other institution (70) | DRG 895 ==
LOC: SRC 20:58
PROVIDERS: ADMIT Internal Medicine; ATTEND Internal Medicine
PROC: HZ2ZZZZ Detoxification Services for Substance Abuse Treatment (ICD-10-PCS; principal; 2016-12-18)
PROC: HZ41ZZZ Group Counseling for Substance Abuse Treatment, Behavioral (ICD-10-PCS; 2016-12-19)
PROC: HZ31ZZZ Individual Counseling for Substance Abuse Treatment, Behavioral (ICD-10-PCS; 2016-12-21)
DX: F10.230 Alcohol dependence with withdrawal, uncomplicated (principal); F13.259 Sedative, hypnotic or anxiolytic dependence with sedative, hypnotic or anxiolytic-induced psychotic disorder, unspecified; F13.230 Sedative, hypnotic or anxiolytic dependence with withdrawal, uncomplicated; Y90.1 Blood alcohol level of 20-39 mg/100 ml; F41.1 Generalized anxiety disorder; F41.0 Panic disorder [episodic paroxysmal anxiety]; F17.210 Nicotine dependence, cigarettes, uncomplicated; F14.10 Cocaine abuse, uncomplicated; F10.259 Alcohol dependence with alcohol-induced psychotic disorder, unspecified; F16.10 Hallucinogen abuse, uncomplicated; F31.9 Bipolar disorder, unspecified; E86.0 Dehydration; R26.81 Unsteadiness on feet; M50.223 Other cervical disc displacement at C6-C7 level; D72.823 Leukemoid reaction; E07.81 Sick-euthyroid syndrome; F12.90 Cannabis use, unspecified, uncomplicated; Z86.69 Personal history of other diseases of the nervous system and sense organs
CPT/HCPCS: 36415; 70030-TC; 80307; 80345; 80346; 83690; 83735; 84443; 85025; 86580; 86592; 86705; 86803; 87340; 87806; 97116; 97161; A4663; G0480; J1885; J2405; J3411; J3490; Q0162

== ENCOUNTER 2017-04-01 21:17 | Inpatient (IN) | payer BC, OTHER ==
[~2017-04-01] VITALS: Ht 177.8 cm; Wt 72.6 kg
[~2017-04-01 21:17] MED LIST: ALBU18HF2 INH; BACL20TA PO; CLON0.1T14 PO; DICY20TA28 PO; GABA-534 PO; HYDR-3895 PO; LIDO30AD10 TD; PANT40TA2 PO; QUET100T PO; QUET25TA PO
[2017-04-01] MEDS ORDERED: DICYCLOMINE HCL 20 MG TABLET PO PRN (22:45)
[2017-04-01] MEDS ORDERED: ONDANSETRON ODT 4 MG TAB.RAPDIS SL PRN (22:45)
[2017-04-01] MEDS ORDERED: MAG HYDROX/AL HYDROX/SIMETH 30 ML LIQUID UDC PO PRN (22:45)
[2017-04-01] MEDS ORDERED: CLONIDINE HCL 0.1 MG TABLET PO PRN (22:45)
[2017-04-01] MEDS ORDERED: LORAZEPAM 1 MG TABLET PO PRN ×2 (22:45)
[2017-04-01] MEDS ORDERED: LOPERAMIDE HCL 2 MG CAPSULE PO PRN ×2 (22:45)
[2017-04-01] MEDS ORDERED: LORAZEPAM 2 MG/1 ML VIAL IM PRN (22:45)
[2017-04-01] MEDS ORDERED: MIRALAX 17 GM POWD.PACK PO PRN (22:45)
[2017-04-01] MEDS ORDERED: MAGNESIUM HYDROXIDE 30 ML LIQUID UDC PO PRN (22:45)
[2017-04-01] MEDS ORDERED: THIAMINE HCL 200 MG/2 ML VIAL IM ONE (22:45)
[2017-04-01] MEDS ORDERED: diphenhydrAMINE 50 MG CAPSULE PO PRN (22:45)
[2017-04-01] MEDS ORDERED: ACETAMINOPHEN 325 MG TABLET PO PRN (22:45)
[2017-04-01] MEDS ORDERED: PATIENT MAY USE OWN MED- MD OK INH PRN (22:45)
--- NOTE | 2017-04-01 22:45 | NUR ---
Intake Assessment Assessment done at intake office. Patient is alert & oriented x4. Pt is ambulatory with a steady gait. Speech is clear and audible. Pt appears slightly anxious and is cooperative during interviews. Vitals noted B/P 123/76, MD 87, RR 18, Temp 98.4, O2Sat 98%. Pt is here for Xanax, ETOH, Phenobarbital, Meth, Cocaine & Marijuana use. Pt is on a regular diet. Pt denies any food and drug allergies. Pt did not bring any home medications. Explained to pt unit protocols. Pt verbalized understanding.
[2017-04-01 23:00] VITALS: BP 123/76
--- NOTE | 2017-04-01 23:00 | NUR ---
ADMISSION NOTE: Patient is a 26 y.o male admitted at [facility] at approximately 2254 pm of 04/01/17 for medically supervised withdrawal from Alcohol, Xanax, Phenobarbital, Meth & Cocaine. Body search done and skin check performed in Room 303, no contraband found. Skin noted to be intact Pt is 510" tall and weighs 160 lbs in a standing scale. Pt is cooperative during assessment. Patient is oriented to floor unit and room. Patient follows a regular diet at home and verbalized no known food and drug allergies. Pt wishes to be full Code. Patient is alert & oriented x4, ambulatory with a steady gait. Speech is clear and audible. No shortness of breath noted. Respiration even & unlabored. Abdomen soft & non-distended. Bowel sounds active in all four quadrants. No nausea/vomiting noted. Pt stated last bowel movement is a day ago. Patient complains of 6/10 headache. No hand tremors noted. Pt denies any chest pain. No hallucinations noted. Patient reported with past medical history of Anxiety, Bipolar disorder, degenerative disc disease, HTN & pseudoseizures. Pt reported hx of seizures, last one was 1 month ago d/t benzo withdrawal. No suicide attempt in the past. Pt currently denies SI/HI. Pt was able to provide urine sample for drug screen upon admission and is voiding clear yellow urine with no problems. Pt reported that he overdosed 2 days ago and was admitted to the hospital and stayed there for a day. MRSA swab collected. Substance use: 1. ETOH- Pt drinks 1 bottle of Vodka or whiskey daily for the past 3 months. Pt had 2-3 glasses of mixed drink 6 hours prior to admission on 04/01/17. 2. Xanax- Pt takes 20mg of Xanax PO daily for the past 3 months. Pt last took was 8mg @ 9am on the day of admission 04/01/17. 3. Phenobarbital- Pt takes Phenobarbital PO 60mg TID for the past 3 months. Pt last took was 300mg 2 days ago 03/30/17. 4. Methamphetamine- Pt smokes 3-4mg daily for the past 3 months. Last use was 3grams 3-days ago 03/29/17. 5. Cocaine- Pt smokes 5-7 grams of cocaine daily for the past 3 months. Last use was 5 grams 3 days ago 03/29/17 6. Marijuana- Pt smokes 1 oz of marijuana daily for the past 3 months. Last smoke was 1 gram 4 days ago. Last one was at [facility] for 7 days (December 18 to December 25, 2016). Pt has also been to [facility] in [place]. Pt reported that he has been to 5 detox center but does not remember the names of the tx centers. Patient reports his longest period of sobriety was for 121days from October 2015 to February 2016. Patient reports symptoms when he does not use sweating, chills, insomnia, restlessness, headaches, Delirium tremens, hallucinations, nausea, tremors, anxiety, agitation & diarrhea". Patient smokes 20 cigarettes daily. Patient does not have a PCP. Urine drug screen came back positive for Ampethamine, Benzodiazepines, & Cannabinoids. Alcohol level is 0.02. Fall & Seizure precautions are in place. All needs attended & met. Safety precautions are in place. Bed locked in lowest position. Both side rails padded & up. Call light within pt's reach. Notified Dr. Tran of pt's admission. Will continue to monitor.
[2017-04-01 23:32] LABS: BASOPHILS # (AUTO) 0.1 K/uL (0.0-8.0); BASOPHILS % (AUTO) 0.9 % (0.0-2.0); EOSINOPHILS # (AUTO) 0.3 K/uL (0.0-0.7); HEMATOCRIT 47.7 % (40-50); HEMOGLOBIN 16.1 G/DL (14.0-18.0); LYMPHOCYTES # (AUTO) 2.7 K/UL (0.8-4.8); LYMPHOCYTES % (AUTO) 26.4 % (20.5-51.5); MEAN CORPUSCULAR HEMOGLOBIN 29.3 UUG (27.0-31.0); MEAN CORPUSCULAR HGB CONC 34 g/dL (32.0-37.0); MEAN CORPUSCULAR VOLUME 86.4 FL (82.0-92.0); MONOCYTES # (AUTO) 0.6 K/UL (0.1-1.30); MONOCYTES % (AUTO) 5.8 % (0.0-11.0); NEUTROPHILS # (AUTO) 6.4 K/UL (1.8-8.9); NEUTROPHILS % (AUTO) 63.9 % (38.5-71.5); PLATELET COUNT (AUTO) 329 K/UL (150-450); RED BLOOD CELL COUNT(AUTO) 5.51 MIL/UL (4.7-6.1); WHITE BLOOD COUNT (AUTO) 10.1 K/UL (4.0-11.2)
[2017-04-01 23:39] LABS: *AMPHETAMINE, URINE POSITIVE (NEGATIVE); *BARBITURATE, URINE NEGATIVE (NEGATIVE); *CANNABINOID, URINE POSITIVE (NEGATIVE); *COCCAINE, URINE NEGATIVE (NEGATIVE); *OPIATE, URINE NEGATIVE (NEGATIVE); *PHENCYCLIDINE SCREEN,URINE NEGATIVE (NEGATIVE)
[2017-04-01] MEDS ORDERED: LORAZEPAM 1 MG TABLET PO ONE (23:45)
[2017-04-01 23:49] LABS: BILIRUBIN,TOTAL 1.1 mg/dL (0.2-1.0); CREATININE 1.1 mg/dL (0.6-1.3); MAGNESIUM 1.9 mg/dL (1.8-2.4); POTASSIUM 3.8 mmol/L (3.5-5.1); TOTAL PROTEIN, SERUM 7.9 g/dL (6.4-8.2)
[2017-04-02] VITALS (8 sets, daily range): BP systolic 91–131; BP diastolic 50–80
[2017-04-02] MEDS: IBUPROFEN 400 MG TABLET PO PRN ×2 (00:12→08:19)
--- NOTE | 2017-04-02 00:12 | NUR ---
PRN Motrin & one time dose of Ativan 2mg Patient presented with complains of of 6/10 headache, and anxiety. No hallucinations noted. CIWA 7 noted at this time. PRN Motrin 400mg PO and a one time dose of Ativan 2mg PO administered as ordered. Will continue to monitor patient.
[2017-04-02] MEDS ORDERED: THIAMINE HCL 200 MG/2 ML VIAL ONE (00:21)
[2017-04-02] MEDS ORDERED: IBUPROFEN 400 MG TABLET ONE (00:21)
[2017-04-02] MEDS ORDERED: LORAZEPAM 1 MG TABLET ONE (00:22)
--- NOTE | 2017-04-02 01:12 | NUR ---
Pt asleep in bed and appears comfortable. No facial grimacing noted. Patient shows no s/sx of distress. Vitals WNL. Safety measures in place. Will continue to monitor patient.
[2017-04-02] MEDS ORDERED: PROP10TA10 PO (04:08)
[2017-04-02] MEDS ORDERED: LITH300T3 PO (04:08)
[2017-04-02] MEDS ORDERED: GABA600T2 PO (04:08)
--- NOTE | 2017-04-02 04:10 | NUR ---
Pt verified that he does have allergies to Acetaminophen and Bee Venom protein(honey bee). Will endorse to AM nurse.
--- NOTE | 2017-04-02 07:27 | NUR ---
End of Shift Note: Patient is a 26 y/o male admitted last night 04/01/17 @ 4944 for medically supervised withdrawal from ETOH, Xanax, Phenobarbital, Meth, Cocaine, & Marijuana use. Patient is on a regular diet with allergies to Acetaminophen and honeybee. Full Code status. Patient has PMHx: Anxiety, Bipolar disorder, Hypertension, Degenerative disc disease & pseudoseizures. Patient had a seizure a month ago d/t benzo withdrawal. Seizure and Fall precautions observed. Patient is placed on a 5-day Ativan taper to be started today at 0900. Last CIWA 4 @ 0400. Pt was give PRN Motrin and a one time dose of Ativan 2mg as ordered. Patient is stable and vitals WNL. Pt slept for a total of 4 hours. Pt consumed 1497ml of fluids. Voided 2x with no bowel movement. All needs attended & met. Safety measures in place. Will endorse pt to day shift nurse.
--- NOTE | 2017-04-02 07:37 | NUR ---
BEGINNING OF SHIFT Patient is a 26 year old male, with admitting Dx: ETOH/bzo Dependence, and with substance use of: Phenobarbital, cocaine, and marijauan. Patient with past medical history of: anxiety, bipolar, hypertension, pseudoseizure,degenerative disk disease. Patient is scheduled to begin a 5 day ativan taper as ordered, and is scheduled to begin day 1. Patient received PRN: motrin during steward/stewardess night, and per steward/stewardess night medication was effective. Patient skin is intact. Per steward/stewardess night patient slept for 4 hours, Patient with last ciwa score of: 4. Patient received in bed awake, alert and oriented x4, educated patient regarding plan of care for the day with good verbal understanding. Safety measures in place. call light kept with in reach, will continue to monitor closely.
[2017-04-02] MEDS: BACLOFEN 20 MG TABLET PO PRN (08:19)
[2017-04-02] MEDS: FOLIC ACID 1 MG TABLET PO SCH (08:19)
[2017-04-02] MEDS: MULTIVITAMINS,THERAPEUTIC TABLET PO SCH (08:19)
[2017-04-02] MEDS: GABAPENTIN 400 MG CAPSULE PO SCH ×3 (08:19→21:05)
[2017-04-02] MEDS: THIAMINE HCL 100 MG TABLET PO SCH (08:19)
--- NOTE | 2017-04-02 08:19 | NUR ---
PRN BACLOFEN/MOTRIN Patient c/o pain 10/10 generalized body aches and muscle aches. provided with non pharmacological interventions with no relief, administered baclofen PO as ordered, and Motrin PO as ordered, will monitor effectiveness of medication.
[2017-04-02] MEDS ORDERED: PNEUMOCOCCAL 23-VAL P-SAC VAC 0.5 ML VIAL IM ONE (09:00)
[2017-04-02] MEDS ORDERED: TUBERCULIN,PURIF.PROT.DERIV. 5 TU/0.1 ML TEST ID ONE (09:00)
[2017-04-02] MEDS ORDERED: LORAZEPAM 1 MG TABLET PO SCH (09:00)
[2017-04-02] MEDS ORDERED: GABAPENTIN 300 MG CAPSULE PO SCH (09:00)
--- NOTE | 2017-04-02 09:19 | NUR ---
BACLOFEN/MOTRIN REASSESSMENT patient reports medications with relief, current pain level 2/10, tolerable as per patient, will continue to monitor.
[2017-04-02] MEDS ORDERED: ALBUTEROL SULFATE 2.5 MG/3 ML NEBU NEB PRN (11:30)
[2017-04-02] MEDS: PHENOBARBITAL 60 MG TABLET PO SCH ×4 (11:32→21:05)
[2017-04-02] MEDS: LITHIUM CARBONATE 300 MG TABLET PO SCH ×2 (13:15→16:53)
[2017-04-02] MEDS: ONDANSETRON 4 MG/2 ML VIAL IM PRN (15:16)
[2017-04-02] MEDS ORDERED: QUETIAPINE FUMARATE 100 MG TABLET PO SCH (18:00)
--- NOTE | 2017-04-02 19:01 | NUR ---
END OF SHIFT Patient alert and oriented x4, patient compliant with therapeutic plan of care. Patient was started on 5 day Phenobarbital taper as ordered, first dose administered today, well tolerated, no ASE noted. 0900 assessment patient mild nausea, tremors that can be felt but not seen, mild sweats, moderate anxiety, mild agitation, mild pins and needles sensation on hands, and mild head fullness with ciwa score of: 13. 1130 assessment patient presented with additional symptom of: moderate visual and auditory hallucinations, per patient sees ghostly figures and hears name being called, with ciwa score increase to: 19. Reality orientation provided as needed. 1300 assessment patient presented with: mild nausea, tremors that can be felt but not seen, barely sweating, moderate anxiety, mild agitation, mild pins and needles sensation on hands, and mild head fullness, and mild auditory and visual hallucinations with ciwa score of: 14; 1700 patient presented with: tremors that can be felt but not seen, barely sweating, mild anxiety, mild agitation, mild pins and needles sensation on hands, and mild head fullness, and mild auditory and visual hallucinations with ciwa score of: 11. Detox medication effective at reducing withdrawal symptom. Patient was encouraged to increase PO fluid intake as tolerated. Patient was administered PRN: Zofran IM ordered for N/V, medication effective one hour post administration, Patient was also administered Motrin and baclofen as ordered, medications were effective. Patient denies SI/HI. Encouraged to attend group therapies/sessions to learn new coping skills to prevent relapse, patient noted attending and participating. MD is aware of patients current status, continues under close observation. Patient endorsed to shift engineer nurse, all pertinent information discussed.
--- NOTE | 2017-04-02 19:15 | NUR ---
Start of Shift Note: Patient is a 26 y/o male admitted last night 04/02/17 for ETOH and Benzo dependence. Patient also use substances: Phenobarbital, Meth, Cocaine & Marijuana. Pt has PMHx: Anxiety, Bipolar disorder, Hypertension, Pseudoseizures and degenerative disc disease. Pt had a seizure 1 month ago d/t benzo withdrawal. Fall and Seizure precaution noted. Patient is on a regular diet with no known food and drug allergies. Full Code status. Ativan taper was discontinued and started patient on a 5-day Phenobarbital taper and tolerating well. Last CIWA 11. Patient was given PRN Phenergan, Baclofen, Motrin & Zofran during day shift. Upon assessment, pt observed in bed asleep but easily arousable. Patient is alert & oriented to name, place and situation. Patient presented with complains of sweating & chills. No N/V/D noted. Patient noted with slight hand tremors. Patient denies hallucinations. Patient denies any anxiety at this time. Safety measures in place. Bed locked in lowest position. Both side rails up. Call light within reach. Will continue to monitor patient.
[2017-04-02] MEDS: OXCARBAZEPINE 150 MG TABLET PO SCH (21:05)
[2017-04-02] MEDS: QUETIAPINE FUMARATE 100 MG TABLET PO SCH (21:05)
[2017-04-03] VITALS (7 sets, daily range): BP systolic 100–127; BP diastolic 68–76
[2017-04-03 06:08] LABS: HEPATITIS B SURFACE AG Negative (Negative)
--- NOTE | 2017-04-03 07:14 | NUR ---
End of Shift Note: Pt had an uneventful night. Patient continues on his Phenobarbital taper and tolerating well. No adverse reactions noted. Last Ciwa is 6. Pt slept most of the night but arousable. Patient was monitored closely Q4H. Scheduled medications were administered with no PRN medications given. Pt reports taper medication is effective in controlling withdrawal symptoms. Patient remains stable and vitals WNL. Encourage pt to increase fluid intake. Pt slept for a total of 9 hours. Consumed 592ml of fluids. Voided 1x with no bowel movement. Encourage pt to increase fluid intake as tolerated. Will endorse pt to day shift nurse.
--- NOTE | 2017-04-03 07:30 | NUR ---
BEGINNING OF SHIFT Patient is a 26 year old male, with admitting Dx: ETOH/bzo Dependence, and with substance use of: Phenobarbital, cocaine, and marijauan. Patient with past medical history of: anxiety, bipolar, hypertension, pseudoseizure,degenerative disk disease. Patient with ongoing 5 day phenobarbital taper as ordered and is scheduled to begin day 2 of taper. Patient received no PRNs during weight shifter. Patient skin is intact. Per weight shifter patient slept for 9 hours, Patient with last ciwa score of: 6. Patient received in bed awake, alert and oriented x4, educated patient regarding plan of care for the day with good verbal understanding. Safety measures in place. call light kept with in reach, will continue to monitor closely.
[2017-04-03] MEDS ORDERED: LORAZEPAM 1 MG TABLET PO SCH (09:00)
[2017-04-03] MEDS ORDERED: PATIENT MAY USE OWN MED- MD OK TOP SCH (09:00)
[2017-04-03] MEDS: THIAMINE HCL 100 MG TABLET PO SCH (09:37)
[2017-04-03] MEDS: MULTIVITAMINS,THERAPEUTIC TABLET PO SCH (09:37)
[2017-04-03] MEDS: LITHIUM CARBONATE 300 MG TABLET PO SCH ×2 (09:37→17:31)
[2017-04-03] MEDS: GABAPENTIN 400 MG CAPSULE PO SCH ×3 (09:37→21:10)
[2017-04-03] MEDS: OXCARBAZEPINE 150 MG TABLET PO SCH (09:37)
[2017-04-03] MEDS: PHENOBARBITAL 60 MG TABLET PO SCH ×3 (09:37→21:10)
[2017-04-03] MEDS: BACLOFEN 20 MG TABLET PO PRN (09:37)
[2017-04-03] MEDS: FOLIC ACID 1 MG TABLET PO SCH (09:37)
--- NOTE | 2017-04-03 09:37 | NUR ---
PRN ZOFRAN/BACLOFEN Patient c/o nausea, no episodes of vomiting noted. Patient c/o muscle aches 01/18. Administered Zofran 4mg SL, and Baclofen as ordered PO, will monitor effectiveness of medications.
[2017-04-03] MEDS: LIDOCAINE 5% PATCH TD SCH (09:38)
--- NOTE | 2017-04-03 10:37 | NUR ---
ZOFRAN/BACLOFEN REASSESSMENT Patient reports no episodes of N/V, medication with relief, patient reports decrease in muscle aches, current pain level 2/10, tolerable as per patient. will continue to monitor. safety measures in place.
--- NOTE | 2017-04-03 10:58 | NUR ---
PT REPORTS USING ROXICODONE/ MD COMMUNICATION Patient reported that he had been smoking "roxys" (roxicodone) Per patient reports smoking 80mg three times a day, reports using for 9 days. Patient reports the last time he used Was two days prior to admission at [facility]. MD notified.
[2017-04-03] MEDS ORDERED: BUPRENORPHINE HCL 2 MG TAB.SUBL SL ONE (12:15)
[2017-04-03] MEDS ORDERED: BUPRENORPHINE HCL 2 MG TAB.SUBL SL PRN ×2 (12:15)
--- NOTE | 2017-04-03 18:58 | NUR ---
END OF SHIFT Patient alert and oriented x4, patient compliant with therapeutic plan of care. Vital signs were stable during shift. Patient was started on 5 day Phenobarbital taper as ordered, well tolerated, no ASE noted, continues on day 2 of taper. During shift patient reports opiate use, Dr. Tran aware and placed patient on a modified Subutex taper, well tolerated, no ASE noted. 0900 assessment presented with: nausea, tremors that can be felt but not seen, sweats, anxiety, mild pins and needled, moderate auditory hallucinations with ciwa score of: 13; 1300 assessment patient presented with: nausea, tremors that can be felt but not seen, sweats, anxiety, mild pins and needled, moderate auditory hallucinations with ciwa score of: 13 1700 patient presented with: c/o chills, mild bone and joint aches, moist eyes, tremors that can be felt but not seen, barely sweating mild pins and needle sensation to arms, and mild auditory hallucinations with ciwa score of: 7 and cow score of: 6. Detox medication effective at reducing withdrawal symptom. Patient was encouraged to increase PO fluid intake as tolerated. Patient was administered PRN: Zofran PO ordered for N/V, medication effective one hour post administration, Patient was also administered baclofen as ordered, medications were effective. Patient denies SI/HI. Encouraged to attend group therapies/sessions to learn new coping skills to prevent relapse, MD is aware of patients current status, continues under close observation. Patient endorsed to shift production supervisor nurse, all pertinent information discussed.
--- NOTE | 2017-04-03 19:15 | NUR ---
START OF SHIFT NOTE : Patient is a 26 year old male, with admitting Dx: ETOH/bzo Dependence, and with substance use of: Phenobarbital, cocaine, and marijauan. Patient with past medical history of: anxiety, bipolar, hypertension, pseudoseizure,degenerative disk disease. Patient is on 5 day phenobarbital taper , started on 04/02/2017 and modified Subutex taper , started on 04/03/2017. Patient with last CIWA=7, COWS=6. Patient received sleeping in the bed, but easily arousable by calling his name. Safety measures in place : bed on lowest position with side rails x2 up for safety, call light within reach. Will continue to monitor closely and offer help.
[2017-04-03] MEDS ORDERED: OXCARBAZEPINE 300 MG TABLET PO SCH (21:00)
[2017-04-03] MEDS: QUETIAPINE FUMARATE 100 MG TABLET PO SCH (21:10)
--- NOTE | 2017-04-04 06:35 | NUR ---
END OF SHIFT NOTE : Patient is a 26 year old male, with admitting Dx: ETOH/bzo Dependence, and with substance use of: Phenobarbital, cocaine, and marijauan. Patient with past medical history of: anxiety, bipolar, hypertension, pseudoseizure,degenerative disk disease. Patient is on 5 day phenobarbital taper , started on 04/02/2017 and modified Subutex taper , started on 04/03/2017. Pt remains compliant with the treatment plan. No PRNs were given during my shift. V/S remain WNL. RR=16, even and unlabored, lungs clear upon auscultation, abdomen soft and non- distended. Pt denies nausea, vomiting and diarrhea. LAST CIWA=3 ,COWS= 3 at 0400 , INTAKE= 1091 ml, voided x 1, slept 10 hours. Safety measures in place : bed on lowest position with side rails x2 up for safety, call light within reach. Will continue to monitor closely and offer help.
--- NOTE | 2017-04-04 07:15 | NUR ---
Start of Shift Endorsement received from nightshift nurse. Pt is a 26 y/o male admitted for alcohol, benzo and meth dependence. Pt has been placed on a 5 day Phenobarbital taper. Pt has also been placed on PRN Subutex taper. Pt has not received any PRN medications. Pt is tolerating the taper and presents with COWS 3, CIWA 3 at 1999. Pt reports sleeping 10 hours. VS WNL. Full Code. Pt is in STABLE condition at this time. Remains compliant with medication and diet regimen. All needs have been met, All safety measures in place per hospital policy. Bed in lowest position, side rails up x2, call-light within reach. Will continue to monitor.
[2017-04-04] MEDS: ONDANSETRON 4 MG/2 ML VIAL IM PRN (07:45)
[2017-04-04 08:00] VITALS: BP 122/74
[2017-04-04] MEDS: LIDOCAINE 5% PATCH TD SCH (09:00)
[2017-04-04] MEDS ORDERED: OXCARBAZEPINE 150 MG TABLET PO SCH (09:00)
[2017-04-04] MEDS ORDERED: LORAZEPAM 1 MG TABLET PO SCH (09:00)
[2017-04-04] MEDS: THIAMINE HCL 100 MG TABLET PO SCH (09:14)
[2017-04-04] MEDS: FOLIC ACID 1 MG TABLET PO SCH (09:14)
[2017-04-04] MEDS: PHENOBARBITAL 60 MG TABLET PO SCH ×4 (09:14→21:15)
[2017-04-04] MEDS: MULTIVITAMINS,THERAPEUTIC TABLET PO SCH (09:15)
[2017-04-04] MEDS: LITHIUM CARBONATE 300 MG TABLET PO SCH ×2 (09:15→17:57)
[2017-04-04] MEDS: GABAPENTIN 400 MG CAPSULE PO SCH ×3 (09:15→21:14)
[2017-04-04 12:00] VITALS: BP 115/70
[2017-04-04] MEDS: BUPRENORPHINE HCL 2 MG TAB.SUBL SL SCH ×3 (13:07→21:15)
[2017-04-04 16:00] VITALS: BP 144/95
--- NOTE | 2017-04-04 19:15 | NUR ---
START OF SHIFT NOTE : Patient is a 26 year old male, with admitting Dx: ETOH/bzo Dependence, and with substance use of: Phenobarbital, cocaine, and marijauan. Patient with past medical history of: anxiety, bipolar, hypertension, pseudoseizure,d egenerative disk disease. Patient is on 5 day phenobarbital taper , started on 04/02/2017 and modified Subutex taper , started on 04/03/2017. Patient is a 26 year old male, with admitting Dx: ETOH/bzo Dependence, and with substance use of: Phenobarbital, cocaine, and marijauan. Patient with past medical history of: anxiety, bipolar, hypertension, pseudoseizure, degenerative disk disease. Patient is on 5 day phenobarbital taper , started on 04/02/2017 and modified Subutex taper , started on 04/03/2017. Pt had a CT scan of the head done due to ptosis to the left eye. Pt presents with positive TB reading, measures 12mm. Pt has gotten a Chest X-ray, results pending. PT participated in groups and activities. Safety measures in place : bed on lowest position with side rails x2 up for safety, call light within reach. Will continue to monitor closely and offer help.
--- NOTE | 2017-04-04 19:22 | NUR ---
End of Shift Endorsement given to nightshift nurse. Pt is a 26 y/o male admitted for alcohol, benzo and meth dependence. Pt has been placed on a 5 day Phenobarbital taper. Pt has been placed on a modified Subutex taper per Dr. Tran.Pt received PRN Zofran 4mg IM due to reporting multiple episodes of emesis, medication was ineffective, pt continues to have episodes of emesis. Administered the PT PRN Subutex for COWS 11. Medication was effective AEB COWS 7 upon re-assessment. Pt had a CT scan of the head done due to ptosis to the left eye. Pt presents with positive TB reading, measures 12mm. Pt has gotten a Chest X-ray, results pending. PT participated in groups and activities. Intake: 3000ml, Void x3, BM x0. Pt is tolerating the taper and presents with COWS 8, CIWA 8 at 1600. VS WNL. Full Code. Pt is in STABLE condition at this time. Remains compliant with medication and diet regimen. All needs have been met, All safety measures in place per hospital policy. Bed in lowest position, side rails up x2, call-light within reach. Will continue to monitor.
[2017-04-04 20:00] VITALS: BP 150/80
[2017-04-04] MEDS: OXCARBAZEPINE 300 MG TABLET PO SCH (21:14)
[2017-04-04] MEDS: QUETIAPINE FUMARATE 100 MG TABLET PO SCH (21:15)
[2017-04-05] MEDS: IBUPROFEN 400 MG TABLET PO PRN ×2 (03:20→17:43)
--- NOTE | 2017-04-05 03:50 | NUR ---
PRN BENTYL, MOTRIN, O2 , cold pack Pt. complains of stomach cramps, local pain in his left FA 12/19, Spo2=89% with RA, QWIG=106.5F . PRN BENTYL, MOTRIN, O2 , cold pack locally (left FA) given as ordered. Safety measures in place : bed on lowest position with side rails x2 up for safety, call light within reach. Will continue to monitor closely and offer help.
[2017-04-05 04:00] VITALS: BP 126/75
--- NOTE | 2017-04-05 04:50 | NUR ---
RE-ASSESSMENT [facility] [place], O2 , cold pack Pt. is sleeping, RR=14, superficial, SpO2=95% , O2=1l/min via NC, KFBM=734.0F Safety measures in place : bed on lowest position with side rails x2 up for safety, call light within reach. Will continue to monitor closely and offer help.
--- NOTE | 2017-04-05 06:34 | NUR ---
START OF SHIFT NOTE : Patient is a 26 year old male, with admitting Dx: ETOH/bzo Dependence, and with substance use of: Phenobarbital, cocaine, and Marijuana. Patient with past medical history of: anxiety, bipolar, hypertension, pseudo seizure, degenerative disk disease. Patient is on 5 day Phenobarbital taper , started on 04/02/2017 and modified Subutex taper , started on 04/03/2017. Patient with past medical history of: anxiety, bipolar, hypertension, pseudo seizure, degenerative disk disease. Patient is on 5 day Phenobarbital taper , started on 04/02/2017 and modified Subutex taper , started on 04/03/2017. Pt had a CT scan of the head done due to ptosis to the left eye, result pending. Pt presents with positive TB reading, measures 12mm. Pt has gotten a Chest X-ray, results pending. Pt remains compliant with the treatment plan. Pt. complained of the stomach cramps and pain in his left FA , skin locally is dry and hot, redness noted. SpO2=89% with RA, O2 given 1l/min via NC, Spo2=95% ; Sixt=868.5F at 04:00 . PRN MOTRIN, BENTYL, O2 , cold pack given during my shift. Cold pack placed to the left FA, coach professional athletes is informed about pt.'s condition. BP remains WNL, ZX=484/min, RR=16, abdomen soft and non- distended. Pt denies nausea, vomiting and diarrhea. LAST CIWA=5 ,COWS=6 at 0400 , SPEZSJ=489 ml, voided x 2, slept 7 hours. Safety measures in place : bed on lowest position with side rails x2 up for safety, call light within reach. Will continue to monitor closely and offer help.
--- NOTE | 2017-04-05 06:51 | NUR ---
1:1 for SAFETY and UNSTEADY GAIT Pt. placed on 1:1 for SAFETY and UNSTEADY GAIT as ordered by
--- NOTE | 2017-04-05 07:54 | NUR ---
START OF SHIFT NOTE : Received report from sports trainer nurse. Patient is a 26 year old male, with admitting Dx: ETOH/Benzo Dependence. Pt is on 1:1 status for unsteady gait. BHT at bedside. Pt is alert and oriented X4. Color flushed. Skin slightly moist. Pt is on a Phenobarb taper receiving Subutex prn. Safety precautions observed. Call light within reach. Will continue to monitor.
[2017-04-05 08:00] VITALS: BP 139/90
[2017-04-05] MEDS: PHENOBARBITAL 60 MG TABLET PO SCH ×3 (08:15→20:26)
[2017-04-05] MEDS: MULTIVITAMINS,THERAPEUTIC TABLET PO SCH (08:15)
--- NOTE | 2017-04-05 08:15 | NUR ---
Pt on O2 prn pulse OX <90. COWS 8 CIWA 10. Pt c/o left leg pain. Pt with slightly slurred speech but alert and oriented. Saline lock LFA patent without signs of infiltration.
[2017-04-05] MEDS: FOLIC ACID 1 MG TABLET PO SCH (08:16)
[2017-04-05] MEDS: GABAPENTIN 400 MG CAPSULE PO SCH ×3 (08:16→20:25)
[2017-04-05] MEDS: THIAMINE HCL 100 MG TABLET PO SCH (08:16)
[2017-04-05] MEDS: OXCARBAZEPINE 300 MG TABLET PO SCH ×2 (08:16→20:25)
[2017-04-05] MEDS: LITHIUM CARBONATE 300 MG TABLET PO SCH ×2 (08:17→16:57)
[2017-04-05] MEDS ORDERED: BUPRENORPHINE HCL 2 MG TAB.SUBL SL SCH (09:00)
[2017-04-05] MEDS: LIDOCAINE 5% PATCH TD SCH (09:00)
[2017-04-05] MEDS ORDERED: LORAZEPAM 1 MG TABLET PO SCH (09:00)
[2017-04-05 09:57] LABS: BASOPHILS # (AUTO) 0.2 K/uL (0.0-8.0); BASOPHILS % (AUTO) 1.1 % (0.0-2.0); EOSINOPHILS % (AUTO) 0.2 % (0.0-7.0); HEMATOCRIT 45.3 % (40-50); HEMOGLOBIN 15.5 G/DL (14.0-18.0); LYMPHOCYTES # (AUTO) 1.7 K/UL (0.8-4.8); LYMPHOCYTES % (AUTO) 9.1 % (20.5-51.5); MEAN CORPUSCULAR HEMOGLOBIN 29.5 UUG (27.0-31.0); MEAN CORPUSCULAR HGB CONC 34 g/dL (32.0-37.0); MEAN CORPUSCULAR VOLUME 86.3 FL (82.0-92.0); MONOCYTES # (AUTO) 1.3 K/UL (0.1-1.30); MONOCYTES % (AUTO) 7.2 % (0.0-11.0); NEUTROPHILS # (AUTO) 15.3 K/UL (1.8-8.9); NEUTROPHILS % (AUTO) 82.4 % (38.5-71.5); PLATELET COUNT (AUTO) 272 K/UL (150-450); RED BLOOD CELL COUNT(AUTO) 5.25 MIL/UL (4.7-6.1); WHITE BLOOD COUNT (AUTO) 18.5 K/UL (4.0-11.2)
[2017-04-05 10:07] LABS: CREATININE 1.1 mg/dL (0.6-1.3); MAGNESIUM 1.9 mg/dL (1.8-2.4); POTASSIUM 4.2 mmol/L (3.5-5.1)
--- NOTE | 2017-04-05 10:15 | NUR ---
Urine collected for UA + C+S
--- NOTE | 2017-04-05 10:30 | NUR ---
Pt has WBC 18.5 Dr. Tran notified. Pt sleeping BHT @ bedside
[2017-04-05] MEDS ORDERED: IV NS 1000 ML 1,000 ML IV ONE (11:00)
--- NOTE | 2017-04-05 11:16 | NUR ---
CLINICAL PHARMACY NOTE:VANCOMYCIN DOSING Request for vancomycin dosing on 26 y/o male 5'10" 160lbs empiric therapy Temp 100.5, BUN 6 Scr 1.1 WBC 18.5 also on Zosyn Start vancomycin 1250mg ivpb q12h estimated trough 13. Will order trough level prior to 4th dose. Will continue to monitor.
--- NOTE | 2017-04-05 11:30 | NUR ---
IV started RFA #22j IV NS bolus 1,000cc started via pump. Pulse OX 89. O2 2 liters placed.
[2017-04-05] MEDS ORDERED: IV NS 1000 ML 1,000 ML IV PRN (12:00)
[2017-04-05] MEDS ORDERED: VANCOMYCIN IV 1,250 MG in IV DEXTROSE 5% 500 ML IV SCH (12:00)
[2017-04-05 12:12] LABS: *BILIRUBIN,URIN NEGATIVE (NEGATIVE); *BLOOD, URINE Trace-lysed (NEGATIVE); *CLARITY,URINE CLEAR (CLEAR); *COLOR,URINE YELLOW (YELLOW); *KETONES,URINE NEGATIVE (NEGATIVE); *PROTEIN,URINE NEGATIVE (NEGATIVE); *UROBILINOGEN,URINE 0.2 E.U./dl (NORMAL); LEUKOCYTE ESTERASE ,URINE 1+ (NEGATIVE); NITRITE, URINE NEGATIVE (NEGATIVE); PH,URINE 5.5 (5.0-8.0); UGLUCOSE NEGATIVE (NEGATIVE)
[2017-04-05] MEDS ORDERED: KETOROLAC TROMETHAMINE 30 MG INJ IM PRN (12:15)
--- NOTE | 2017-04-05 12:15 | NUR ---
Pt c/o blurred vision. aware
[2017-04-05 12:26] LABS: BACTERIA,URINE MANY /HPF (NONE SEEN); RBC,URINE NONE SEEN /HPF (0-3); SQUAMOUS EPITHELIAL CELL,UR MODERATE /HPF (NONE SEEN)
--- NOTE | 2017-04-05 12:30 | NUR ---
Toradol 30mg IM prn given for left leg pain. Addendum: 04/05/17 at 1549 by LEOLA SANDERS RN Please disregard entry
[2017-04-05] MEDS: PIPERACILLIN/TAZOBACTAM/D5W 50 ML IV SCH ×2 (12:40→17:02)
--- NOTE | 2017-04-05 12:43 | NUR ---
NS 1000cc bolus completed. Zosyn started @ 50cc/hr via pump Toradol 30mg IM prn given for Left leg pain. Venous doppler completed on Left leg
[2017-04-05 12:55] VITALS: BP 127/80
--- NOTE | 2017-04-05 13:30 | NUR ---
Zosyn completed. Vancomycin started @ 250cc/hr. Pt states no relief from Toradol prn
[2017-04-05] MEDS: BUPRENORPHINE HCL 2 MG TAB.SUBL SL SCH ×2 (14:22→20:27)
--- NOTE | 2017-04-05 14:37 | NUR ---
Pulse OX 89-92 on 2liters O2 Other VSS COWS 10 CIWA 8
[2017-04-05] MEDS ORDERED: KETOROLAC TROMETHAMINE 30 MG INJ IM ONE (14:45)
[2017-04-05] MEDS ORDERED: BUPRENORPHINE HCL 2 MG TAB.SUBL SL ONE (14:45)
--- NOTE | 2017-04-05 14:51 | NUR ---
One time dose of Toradol 30mg IM and Subutex 1 time dose given
--- NOTE | 2017-04-05 15:30 | NUR ---
Pt states one time Subutex 2 mg sl "didn't help with the pain."
[2017-04-05] MEDS ORDERED: QUETIAPINE FUMARATE 100 MG TABLET PO SCH (17:00)
--- NOTE | 2017-04-05 17:12 | NUR ---
Pt noted to have increased rhonchi. Pulse OX decreased to 89% on 2 liters. O2 increased to 5 liters. Pulse OX 96%. Dr. Tran notified. VSS RR 16
[2017-04-05 17:22] VITALS: BP 139/80
--- NOTE | 2017-04-05 17:30 | NUR ---
Pt noted to have rigors. HR increased to 118.
--- NOTE | 2017-04-05 17:45 | NUR ---
Motrin 400mg po prn given. Temp 101
[2017-04-05] MEDS ORDERED: AZITHROMYCIN IV 500 MG in IV DEXTROSE 5% 250 ML IV SCH (18:00)
[2017-04-05] MEDS ORDERED: PHEN60TA11 PO ×3 (18:19)
[2017-04-05] MEDS ORDERED: OXCA300T4 PO (18:19)
[2017-04-05] MEDS ORDERED: LITH300T3 PO (18:19)
--- NOTE | 2017-04-05 18:27 | NUR ---
Pt to be transferred to [facility] to a negative pressure room to r/o active TB.
--- NOTE | 2017-04-05 18:39 | NUR ---
Report given to Flip at [facility]. Pt to go to room 317
--- NOTE | 2017-04-05 19:05 | NUR ---
END OF SHIFT NOTE: Report given to shift commander nurse . Patient is a 26 year old male, with admitting Dx: ETOH/Benzo Dependence. Pt is on 1:1 status for unsteady gait. BHT at bedside. Pt is alert and oriented X4. Color flushed. Skin slightly moist. Pt is on a Phenobarb taper receiving Subutex prn. Tolerating well. Pt has IV RFA with NS @125cc/hr.. Also receiving IV antibiotics for WBC 18.5. Pt on O2 2 liters prn pulse OX <90 Patient received Toradol 30mg IM X2 and one time dose of Subutex. B/P stable. Pt has been tachycardic and pulse OX running 92% on 2 liters O2. Last COWS 10 and CIWA 8. Pt noted to have rigors. Pt placed on isolation. Pt to be transferred to [facility] to a negative pressure room to r/o active TB. Report given to Fil[facility]. Pt to go to room 317. [facility] called for transport. Safety precautions observed. Call light within reach
--- NOTE | 2017-04-05 19:15 | NUR ---
START OF SHIFT Received 26 year old male patient admitted on 04/01/17 for ETOH,Xanax, Phenobarbital, Meth, Cocaine, Roxicodone, and Marijuana dependency. Pt is full code with allergy to acetaminophen and bee venom. Pt reports a PMHx of anxiety, bipolar, hypertension, pseudoseizure, degenerative disc disease and history of seizure d/t benzo withdrawal (1 month ago). Pt reports using ETOH (vodka/whiskey) 1 bottle daily for 3 months. Last dose was 2-3 glasses of mixed drinks on 04/01/17, Xanax PO 20 mg daily for 3 months. Last dose was 8 mg on 04/01/17, Phenobarbital PO 60 mg TID daily for 3 months. Last dose was 300 mg on 03/30/17, Methamphetamine 3-4 grams daily for 3 months. Last dose was 3 grams on 03/29/17, Cocaine (smoke) 5-7 grams daily for 3 months. Last dose was 5 grams on 03/28/17. Marijuana 1 oz daily for 3 months. Last dose was 5 grams on 03/28/17. And Roxicodone 80 mg TID x9 days. Last dose was 80 mg on 03/29/17. Pt placed on 5 day Phenobarbital started on 04/02/17 and modified Subutex taper started on 04/03/17. Per endorsement, pt to be transferred to [facility] to rule out TB. Pt with positive PPD, and negative CXR. Pt received Toradol x2 and one time Subutex. Pt on airborne isolation for suspected TB. Pt with IV on right forearm gauge 22. Pt with NC on 5L with Spo2 94%. Pt also noted with increased HR between 110-140. He is to be transferred via ambulance. Pt on 1:1 For unsteady gait. Pt in bed with eyes closed noted to be asleep. Pt responds to nurses greeting. Safety measures in place. Will continue to monitor.
[2017-04-05 20:00] VITALS: BP 128/70
--- NOTE | 2017-04-05 20:10 | NUR ---
NURSING NOTE X-RAY performed on pt.
--- NOTE | 2017-04-05 21:40 | NUR ---
RN note Transfer Patient transferred to [facility], picked up by EMT Personnel via [facility] on a gurney. Patient for rule out TB. Vital signs are stable. All belongings and paperworks given to EMT personnel. Report given to CHASITY Cervantes, at the Med Surg unit, 2nd floor of [facility]. Dr. Tran notified of the time of transfer. Patient discharged without any untoward complications.
[2017-04-06] MEDS ORDERED: PHENOBARBITAL 60 MG TABLET PO SCH (09:00)
[2017-04-06] MEDS ORDERED: LORAZEPAM 1 MG TABLET PO SCH (09:00)
[2017-04-06] MEDS ORDERED: BUPRENORPHINE HCL 2 MG TAB.SUBL SL SCH (09:00)
[2017-04-07] MEDS ORDERED: BUPRENORPHINE HCL 2 MG TAB.SUBL SL SCH (09:00)
[2017-04-07] MEDS ORDERED: PHENOBARBITAL 60 MG TABLET PO SCH (09:00)
[2017-04-09 07:07] LABS: *GC NAA Negative (Negative); *TRIC.VAG. NAA Negative (Negative)
== END 2017-04-05 21:40 | disposition short-term general hospital (02) | DRG 895 ==
LOC: SRC 22:18
PROVIDERS: ADMIT Internal Medicine; ATTEND Internal Medicine
PROC: HZ2ZZZZ Detoxification Services for Substance Abuse Treatment (ICD-10-PCS; principal; 2017-04-01)
PROC: HZ41ZZZ Group Counseling for Substance Abuse Treatment, Behavioral (ICD-10-PCS; 2017-04-02)
PROC: HZ31ZZZ Individual Counseling for Substance Abuse Treatment, Behavioral (ICD-10-PCS; 2017-04-02)
DX: F10.232 Alcohol dependence with withdrawal with perceptual disturbance (principal); J18.9 Pneumonia, unspecified organism; R65.10 Systemic inflammatory response syndrome (SIRS) of non-infectious origin without acute organ dysfunction; I15.9 Secondary hypertension, unspecified; F31.62 Bipolar disorder, current episode mixed, moderate; E86.0 Dehydration; F14.229 Cocaine dependence with intoxication, unspecified; F13.232 Sedative, hypnotic or anxiolytic dependence with withdrawal with perceptual disturbance; Y90.9 Presence of alcohol in blood, level not specified; F41.1 Generalized anxiety disorder; F41.0 Panic disorder [episodic paroxysmal anxiety]; Z79.899 Other long term (current) drug therapy; R76.11 Nonspecific reaction to tuberculin skin test without active tuberculosis; F17.210 Nicotine dependence, cigarettes, uncomplicated; F12.20 Cannabis dependence, uncomplicated; G40.909 Epilepsy, unspecified, not intractable, without status epilepticus; Z59.1 Inadequate housing; F11.23 Opioid dependence with withdrawal; F15.220 Other stimulant dependence with intoxication, uncomplicated; H02.402 Unspecified ptosis of left eyelid; Z81.8 Family history of other mental and behavioral disorders; Z91.89 Other specified personal risk factors, not elsewhere classified; M50.30 Other cervical disc degeneration, unspecified cervical region; R73.9 Hyperglycemia, unspecified; R09.02 Hypoxemia
CPT/HCPCS: 36415; 70030-TC; 70450; 70470; 71010; 80307; 80324; 80346; 80349; 83735; 85025; 86580; 86592; 86705; 86803; 87040; 87070; 87086; 87340; 87491; 87806; 90732; G0480; J0456; J1885; J2405; J2543; J3370; J3411; J7030; J7050; J7060; J8499; Q0162

== ENCOUNTER 2017-04-04 15:59 | Outpatient (CLI) | payer BC, OTHER ==
[~2017-04-04 15:59] MED LIST changes: +GABA600T2 PO; +LITH300T3 PO; +PROP10TA10 PO; -QUET25TA PO
[2017-04-05] MEDS ORDERED: PHEN60TA11 PO ×3 (18:19)
[2017-04-05] MEDS ORDERED: LITH300T3 PO (18:19)
[2017-04-05] MEDS ORDERED: OXCA300T4 PO (18:19)
== END 2017-04-04 23:59 | disposition home or self-care (01) ==
LOC: RAD 15:59
PROVIDERS: ATTEND Internal Medicine
DX: H02.402 Unspecified ptosis of left eyelid (principal)
CPT/HCPCS: 70480